=== PATIENT | male | born 1985 | race Hispanic/Latino ===

== ENCOUNTER 2022-07-17 18:40 | Emergency (ER) | payer OTHER ==
[~2022-07-17] VITALS: Ht 167.6 cm; Wt 158.8 kg
[2022-07-17] MEDS ORDERED: CEFTRIAXONE 1G VIAL IM ONE (20:30)
[2022-07-17] MEDS ORDERED: KETOROLAC 60 MG VIAL (30MG/ML) IM ONE (20:30)
[2022-07-17 22:26] VITALS: BP 142/70
[2022-07-17] MEDS ORDERED: IBUP-2070 PO (22:40)
[2022-07-17] MEDS ORDERED: PANT40TA54 PO (22:40)
[2022-07-17] MEDS ORDERED: CEPH500C2 PO (22:40)
[2022-07-17] MEDS ORDERED: SULF1TAB42 PO (22:40)
[2022-07-17] MEDS ORDERED: ONDA-104 PO (22:40)
== END 2022-07-17 22:56 | disposition home or self-care (01) ==
LOC: EDH 18:40
DX: L03.311 Cellulitis of abdominal wall (principal); K42.0 Umbilical hernia with obstruction, without gangrene; Z79.899 Other long term (current) drug therapy
CPT/HCPCS: 99284; 74176; 96372 ×2; J0696; J1885

== ENCOUNTER 2023-01-14 19:27 | Emergency (ER) | payer OTHER ==
[~2023-01-14] VITALS: Ht 177.8 cm; Wt 163.7 kg
[~2023-01-14 19:27] MED LIST: CEPH500C2 PO; IBUP-2070 PO; ONDA-104 PO; PANT40TA54 PO; SULF1TAB42 PO
[2023-01-14] MEDS ORDERED: PREDNISONE 20 MG TABLET PO ONE (22:00)
[2023-01-14] MEDS ORDERED: FAMOTIDINE 20MG TAB PO ONE (22:00)
[2023-01-14] MEDS ORDERED: DiphenhydrAMINE HCL 50 MG/ML VIAL IM ONE (22:00)
[2023-01-14] MEDS ORDERED: PRED20TA3 PO (23:56)
[2023-01-14] MEDS ORDERED: FAMO20TA8 PO (23:56)
[2023-01-15 00:07] VITALS: BP 124/72; PULSE 84; RESP 18; O2SAT 99
== END 2023-01-15 00:08 | disposition home or self-care (01) ==
LOC: EDH 19:27
DX: L25.9 Unspecified contact dermatitis, unspecified cause (principal); Z79.899 Other long term (current) drug therapy
CPT/HCPCS: 99283; 96372; J1200